=== PATIENT | female | born 1955 | race Caucasian/White ===

== ENCOUNTER 2018-10-12 19:04 | Emergency (ER) | payer OTHER ==
[2018-10-12] MEDS ORDERED: predniSONE 20 MG TAB ONE (20:04)
== END 2018-10-12 20:10 | disposition home or self-care (01) ==
LOC: MADERS 19:04
DX: J02.9 Acute pharyngitis, unspecified (principal); B34.9 Viral infection, unspecified; E78.5 Hyperlipidemia, unspecified; I10 Essential (primary) hypertension; M19.90 Unspecified osteoarthritis, unspecified site; F41.9 Anxiety disorder, unspecified; Z87.891 Personal history of nicotine dependence; Z79.891 Long term (current) use of opiate analgesic; Z79.899 Other long term (current) drug therapy
CPT/HCPCS: 87081; 87430; 87804; 99283; J7506

== ENCOUNTER 2024-02-14 00:03 | Emergency (ER) | payer MEDICARE, OTHER ==
[2024-02-14] MEDS ORDERED: Dicyclomine 20 MG/2 ML VIAL ONE (00:34)
[2024-02-14] MEDS ORDERED: Ondansetron PF 4 MG/2 ML Vial ONE (00:34)
[2024-02-14] MEDS ORDERED: Sodium Chloride 0.9% 1,000 ML ONE (00:34)
[2024-02-14 00:44] LABS: Eosinophils 2 % (0-10); Hematocrit 38.7 % (36.0-47.0); Hemoglobin 12.2 g/dL (12.0-16.0); Lymphocytes 16 % (21-51); MDiff Complete? YES; Mean Corpuscular HGB CONC 31.5 g/dL (32.0-36.0); Mean Corpuscular Hemoglobin 29.5 pg (27.0-31.0); Mean Corpuscular Volume 93.7 fl (78.0-98.0); Mean Platelet Volume 7.8 fL (7.4-10.4); Monocytes 9 % (0-10); Neutrophil 73 % (42-75); Platelet Count 353 10x3/uL (130-400); RBC Distribution Width 14.5 % (11.5-14.5); Red Blood Cell (RBC) Count 4.13 mill/uL (4.20-5.40); White Blood Cell (WBC) Count 11.8 10x3/uL (4.8-10.8)
[2024-02-14 00:56] LABS: ALT (SGPT) 15 U/L (8-55); AST (SGOT) 16 U/L (5-34); Albumin 4.2 g/dL (3.4-4.8); Alkaline Phosphatase 86 U/L (40-110); Anion Gap 15 mmol/L (10-20); BUN (Urea Nitrogen) 19 mg/dL (9.8-20.1); Bilirubin, Total 0.3 mg/dL (0.2-1.2); Calc. Creatinine Clearance 0 mL/min (70-130); Calcium 9.3 mg/dL (7.8-10.44); Carbon Dioxide 21 mmol/L (23-31); Chloride 101 mmol/L (98-107); Estimated GFR 64; Glucose 125 mg/dL (80-115); Lipase 81 U/L (8-78); Potassium 4.1 mmol/L (3.5-5.1); Protein, Total 7.2 g/dL (5.8-8.1); Sodium 133 mmol/L (136-145)
[2024-02-14 01:20] LABS: Bilirubin Negative (Negative); Blood, Urine Negative (Negative); CAUTI Indications for Culture Pelvic or flank pain; Clarity Clear (Clear); Glucose, Urine (Dipstick) Negative (Negative); Ketone, Urine Negative (Negative); Leukocyte Negative (Negative); Nitrite Negative (Negative); Protein, Urine (Dipstick) Negative (Neg-Trace); RBC/HPF None Seen HPF (0-3); Squamous Epithelial 0-3 HPF (0-3); Urobilinogen 0.2 mg/dL (Less than 2); WBC/HPF 0-3 HPF (0-3); Yeast-Budding Rare HPF (None Seen); pH, Urine 5.5 (5.0-9.0)
[2024-02-14 01:21] LABS: Urine Culture Reflex No No
[2024-02-14] MEDS ORDERED: Lidocaine Viscous Sol 2% 15 ml UD Cup ONE (01:43)
[2024-02-14] MEDS ORDERED: Mag-Al Plus 1200/1200/120 MG (30 mL) UDCUP ONE (01:43)
== END 2024-02-14 02:00 | disposition home or self-care (01) ==
LOC: MADERS 00:03
DX: R10.13 Epigastric pain (principal); Z55.6 Problems related to health literacy; F17.210 Nicotine dependence, cigarettes, uncomplicated
CPT/HCPCS: 80053; 81001; 83690; 85025; 93005; 96372; 96374; J2405; J7050

== ENCOUNTER 2024-02-22 16:58 | Emergency (ER) | payer MEDICARE, OTHER ==
[2024-02-22] MEDS ORDERED: Lactated Ringer's 1,000 ML ONE (17:34)
[2024-02-22] MEDS ORDERED: Morphine 4 MG/ML VIAL ONE ×2 (17:34→18:40)
[2024-02-22] MEDS ORDERED: Ondansetron PF 4 MG/2 ML Vial ONE (17:34)
[2024-02-22 18:05] LABS: ALT (SGPT) 12 U/L (8-55); AST (SGOT) 14 U/L (5-34); Albumin 4.3 g/dL (3.4-4.8); Alkaline Phosphatase 115 U/L (40-110); Anion Gap 23 mmol/L (10-20); BUN (Urea Nitrogen) 18 mg/dL (9.8-20.1); Bilirubin, Total 0.3 mg/dL (0.2-1.2); Calc. Creatinine Clearance 0 mL/min (70-130); Calcium 9.9 mg/dL (7.8-10.44); Carbon Dioxide 17 mmol/L (23-31); Chloride 99 mmol/L (98-107); Estimated GFR 64; Globulin 3.1 g/dL (2.4-3.5); Glucose 222 mg/dL (80-115); Lipase 122 U/L (8-78); Potassium 3.9 mmol/L (3.5-5.1); Protein, Total 7.4 g/dL (5.8-8.1); Sodium 135 mmol/L (136-145)
[2024-02-22 18:06] LABS: Troponin I Less than 0.010 ng/mL (< 0.028)
[2024-02-22 18:22] LABS: Band 4 % (5-11); Hematocrit 40.2 % (36.0-47.0); Hemoglobin 12.5 g/dL (12.0-16.0); Hypochromia SLIGHT = 6-15 cells (100X) (0-5/hpf); Lymphocytes 10 % (21-51); MDiff Complete? YES; Mean Corpuscular HGB CONC 31.1 g/dL (32.0-36.0); Mean Corpuscular Hemoglobin 29.1 pg (27.0-31.0); Mean Corpuscular Volume 93.6 fl (78.0-98.0); Mean Platelet Volume 7.6 fL (7.4-10.4); Monocytes 12 % (0-10); Neutrophil 74 % (42-75); Platelet Adequacy Comment Appears Increased; Platelet Count 475 10x3/uL (130-400); RBC Distribution Width 13.8 % (11.5-14.5); Red Blood Cell (RBC) Count 4.29 mill/uL (4.20-5.40)
[2024-02-22] MEDS ORDERED: HYDROmorphone 0.5 MG/0.5 ML SYRINGE ONE ×3 (19:27→22:58)
[2024-02-22] MEDS ORDERED: Piperacillin/Tazobactam 4.5 GM VIAL ONE (19:36)
[2024-02-22] MEDS ORDERED: Sodium Chloride 0.9% 100 ML ONE (19:36)
[2024-02-22 19:48] LABS: Base Excess-Venous -2.4 mmol/L (-2.0 to 3.0); Bicarbonate (HCO3v) 22.6 mmol/L (22.0-28.0); Calcium, Ionized 1.17 mmol/L (1.15-1.33); Chloride 99 mmol/L (98-107); Hemoglobin - Calc 13.9 g/dL (12.0-16.0); Potassium 3.3 mmol/L (3.5-5.1); Sodium 134 mmol/L (138-145); T. Carbon Dioxide 23.8 mmol/L (22.0-28.0); vO2 Saturation-calc 85.8 % (60.0-85.0)
[2024-02-22 20:21] LABS: INR-International Normal Ratio 1.1; Prothrombin Time 13.9 sec (12.0-14.7)
[2024-02-22 20:22] LABS: PTT 38.5 sec (22.9-36.1)
[2024-02-22 20:33] LABS: Lactic Acid 1.2 mmol/L (0.5-2.2)
[2024-02-22 21:23] LABS: Bilirubin Negative (Negative); Blood, Urine Negative (Negative); Clarity Clear (Clear); Glucose, Urine (Dipstick) 100 mg/dL (Negative); Ketone, Urine Negative (Negative); Leukocyte Negative (Negative); Nitrite Negative (Negative); Protein, Urine (Dipstick) Negative (Neg-Trace); Urobilinogen 0.2 mg/dL (Less than 2)
[2024-02-22 21:24] LABS: CAUTI Indications for Culture Pelvic or flank pain; RBC/HPF None Seen HPF (0-3); Squamous Epithelial 0-3 HPF (0-3); WBC/HPF None Seen HPF (0-3); Yeast-Budding Rare HPF (None Seen)
[2024-02-22 21:25] LABS: Urine Culture Reflex No No
== END 2024-02-22 23:17 | disposition short-term general hospital (02) ==
LOC: MADERS 16:58
DX: K55.1 Chronic vascular disorders of intestine (principal); K35.80 Unspecified acute appendicitis; K63.89 Other specified diseases of intestine; E78.00 Pure hypercholesterolemia, unspecified; I10 Essential (primary) hypertension; Z79.82 Long term (current) use of aspirin; Z79.899 Other long term (current) drug therapy
CPT/HCPCS: 71045; 74174; 80053; 81001; 82010; 82330; 82803; 83605; 83690; 84484; 85025; 85610; 85730; 93005; 94760; 96361; 96365; 96375; 96376; J1170; J2270; J2405; J2543; J7120

== ENCOUNTER 2024-10-02 12:24 | Emergency (ER) | payer MEDICARE, OTHER ==
[2024-10-02 13:27] LABS: Prothrombin Time 13.6 sec (12.0-14.7)
[2024-10-02 13:28] LABS: Anisocytosis SLIGHT = 6-15 cells (100X) (0-5/hpf); Band 4 % (5-11); Eosinophils 2 % (0-10); Hematocrit 30.1 % (36.0-47.0); Hemoglobin 9.7 g/dL (12.0-16.0); Hypochromia SLIGHT = 6-15 cells (100X) (0-5/hpf); Lymphocytes 11 % (21-51); MDiff Complete? YES; Mean Corpuscular HGB CONC 32.4 g/dL (32.0-36.0); Mean Corpuscular Hemoglobin 28.3 pg (27.0-31.0); Mean Corpuscular Volume 87.4 fl (78.0-98.0); Mean Platelet Volume 8.5 fL (7.4-10.4); Monocytes 12 % (0-10); Neutrophil 69 % (42-75); Platelet Adequacy Comment Appears Increased; Platelet Count 599 10x3/uL (130-400); RBC Distribution Width 14.2 % (11.5-14.5); Red Blood Cell (RBC) Count 3.44 mill/uL (4.20-5.40); White Blood Cell (WBC) Count 12.7 10x3/uL (4.8-10.8)
[2024-10-02 13:29] LABS: ALT (SGPT) 8 U/L (Less than 34); AST (SGOT) 12 U/L (11-34); Albumin 2.8 g/dL (3.1-4.5); Alkaline Phosphatase 108 U/L (40-110); Anion Gap 19 mmol/L (10-20); BUN (Urea Nitrogen) 44 mg/dL (9.8-20.1); Bilirubin, Total 0.2 mg/dL (0.3-1.2); Calc. Creatinine Clearance 0 mL/min (70-130); Calcium 9.2 mg/dL (7.8-10.44); Carbon Dioxide 22 mmol/L (23-31); Chloride 101 mmol/L (98-107); Estimated GFR 60; Globulin 4.6 g/dL (2.4-3.5); Glucose 108 mg/dL (80-115); Potassium 4.4 mmol/L (3.5-5.1); Protein, Total 7.4 g/dL (5.8-8.1); Sodium 138 mmol/L (136-145)
[2024-10-02] MEDS ORDERED: Piperacillin/Tazobactam 4.5 GM VIAL ONE (13:39)
[2024-10-02] MEDS ORDERED: Vancomycin 1 GM VIAL ONE (14:19)
== END 2024-10-02 17:28 | disposition home or self-care (01) ==
LOC: MADERS 12:24
DX: T81.31XA Disruption of external operation (surgical) wound, not elsewhere classified, initial encounter (principal); I10 Essential (primary) hypertension; F17.210 Nicotine dependence, cigarettes, uncomplicated; E78.5 Hyperlipidemia, unspecified; Z86.79 Personal history of other diseases of the circulatory system; Y82.8 Other medical devices associated with adverse incidents
CPT/HCPCS: 36415; 74177; 80053; 83605; 85025; 85610; 85730; 86140; 87040; 87070; 87205; 94760; 96365; 96367; J2543; J3370

== ENCOUNTER 2025-01-16 12:25 | Emergency (ER) | payer MEDICARE, OTHER | END 2025-01-16 13:55 | disposition home or self-care (01) | LOC: MADERS 12:25 | DX: S90.32XA Contusion of left foot, initial encounter (principal); I10 Essential (primary) hypertension; E78.00 Pure hypercholesterolemia, unspecified; F17.210 Nicotine dependence, cigarettes, uncomplicated; Z79.82 Long term (current) use of aspirin; Z79.899 Other long term (current) drug therapy; Z95.5 Presence of coronary angioplasty implant and graft; W20.8XXA Other cause of strike by thrown, projected or falling object, initial encounter | CPT/HCPCS: 99283 ==

== ENCOUNTER 2025-04-05 13:10 | Outpatient (CLI) | payer MEDICARE, OTHER ==
[2025-04-05 13:39] LABS: ALT (SGPT) 27 U/L (Less than 34); AST (SGOT) 25 U/L (11-34); Albumin 2.6 g/dL (3.1-4.5); Alkaline Phosphatase 181 U/L (40-110); Anion Gap 19 mmol/L (10-20); BUN (Urea Nitrogen) 32 mg/dL (9.8-20.1); Bilirubin, Total 0.3 mg/dL (0.3-1.2); Calc. Creatinine Clearance 0 mL/min (70-130); Calcium 8.7 mg/dL (7.8-10.44); Carbon Dioxide 24 mmol/L (23-31); Chloride 103 mmol/L (98-107); Globulin 4.0 g/dL (2.4-3.5); Glucose 99 mg/dL (80-115); Magnesium 2.1 mg/dL (1.6-2.6); Potassium 4.3 mmol/L (3.5-5.1); Sodium 142 mmol/L (136-145); Triglycerides 299 mg/dL (Less than 150)
[2025-04-05 14:12] LABS: Anisocytosis SLIGHT = 6-15 cells (100X) (0-5/hpf); Hematocrit 24.4 % (36.0-47.0); Hemoglobin 7.7 g/dL (12.0-16.0); MDiff Complete? YES; Mean Corpuscular Hemoglobin 25.9 pg (27.0-31.0); Mean Corpuscular Volume 82.2 fl (78.0-98.0); Platelet Adequacy Comment Appears Increased; Platelet Count 495 10x3/uL (130-400); Red Blood Cell (RBC) Count 2.94 mill/uL (4.20-5.40); White Blood Cell (WBC) Count 13.0 10x3/uL (4.8-10.8)
== END 2025-04-05 13:11 | disposition home or self-care (01) ==
LOC: MADLAB 13:10
PROVIDERS: ATTEND Family Medicine
DX: K55.1 Chronic vascular disorders of intestine (principal)
CPT/HCPCS: 80053; 83735; 84100; 84134; 84478; 85025; 86140

== ENCOUNTER 2025-04-13 11:51 | Outpatient (CLI) | payer MEDICARE, OTHER ==
[2025-04-13 12:09] LABS: #Basophils 0.2 thou/uL (0.0-0.2); #Eosinophils 0.1 thou/uL (0.0-0.7); #Lymphocytes 1.3 thou/uL (1.20-3.40); #Monocytes 1.2 thou/uL (0.11-0.59); #Neutrophils 8.0 thou/uL (1.40-6.50); %Basophils 2.0 % (0.0-1.0); %Eosinophils 1.3 % (0.0-10.0); %Lymphocytes 12.2 % (21.0-51.0); %Monocytes 10.7 % (0.0-10.0); %Neutrophils 73.9 % (42.0-75.0); Hematocrit 25.9 % (36.0-47.0); Hemoglobin 8.1 g/dL (12.0-16.0); Mean Corpuscular Hemoglobin 25.4 pg (27.0-31.0); Mean Corpuscular Volume 81.6 fl (78.0-98.0); Platelet Count 576 10x3/uL (130-400); Red Blood Cell (RBC) Count 3.18 mill/uL (4.20-5.40); White Blood Cell (WBC) Count 10.8 10x3/uL (4.8-10.8)
[2025-04-13 12:18] LABS: ALT (SGPT) 33 U/L (Less than 34); AST (SGOT) 26 U/L (11-34); Albumin 2.7 g/dL (3.1-4.5); Alkaline Phosphatase 149 U/L (40-110); Anion Gap 18 mmol/L (10-20); BUN (Urea Nitrogen) 35 mg/dL (9.8-20.1); Bilirubin, Total 0.3 mg/dL (0.3-1.2); Calc. Creatinine Clearance 0 mL/min (70-130); Calcium 8.8 mg/dL (7.8-10.44); Carbon Dioxide 26 mmol/L (23-31); Chloride 101 mmol/L (98-107); Globulin 4.2 g/dL (2.4-3.5); Glucose 107 mg/dL (80-115); Magnesium 2.3 mg/dL (1.6-2.6); Potassium 4.8 mmol/L (3.5-5.1); Sodium 140 mmol/L (136-145); Triglycerides 246 mg/dL (Less than 150)
== END 2025-04-13 11:52 | disposition home or self-care (01) ==
LOC: MADLAB 11:51
PROVIDERS: ATTEND Family Medicine
DX: K55.1 Chronic vascular disorders of intestine (principal)
CPT/HCPCS: 80053; 83735; 84100; 84134; 84478; 85025; 86140

== ENCOUNTER 2025-04-19 10:40 | Outpatient (CLI) | payer MEDICARE, OTHER ==
[2025-04-19 10:49] LABS: #Basophils 0.1 thou/uL (0.0-0.2); #Eosinophils 0.1 thou/uL (0.0-0.7); #Lymphocytes 2.0 thou/uL (1.20-3.40); #Monocytes 1.2 thou/uL (0.11-0.59); #Neutrophils 8.6 thou/uL (1.40-6.50); %Basophils 0.9 % (0.0-1.0); %Eosinophils 1.2 % (0.0-10.0); %Lymphocytes 16.8 % (21.0-51.0); %Monocytes 9.9 % (0.0-10.0); %Neutrophils 71.1 % (42.0-75.0); Hematocrit 27.2 % (36.0-47.0); Hemoglobin 8.4 g/dL (12.0-16.0); Mean Corpuscular Hemoglobin 25.1 pg (27.0-31.0); Mean Corpuscular Volume 81.2 fl (78.0-98.0); Platelet Count 593 10x3/uL (130-400); Red Blood Cell (RBC) Count 3.35 mill/uL (4.20-5.40); White Blood Cell (WBC) Count 12.1 10x3/uL (4.8-10.8)
[2025-04-19 11:02] LABS: ALT (SGPT) 20 U/L (Less than 34); AST (SGOT) 17 U/L (11-34); Albumin 2.8 g/dL (3.1-4.5); Alkaline Phosphatase 147 U/L (40-110); Anion Gap 19 mmol/L (10-20); BUN (Urea Nitrogen) 43 mg/dL (9.8-20.1); Bilirubin, Total 0.3 mg/dL (0.3-1.2); Calc. Creatinine Clearance 0 mL/min (70-130); Calcium 9.1 mg/dL (7.8-10.44); Carbon Dioxide 27 mmol/L (23-31); Chloride 99 mmol/L (98-107); Globulin 4.2 g/dL (2.4-3.5); Glucose 113 mg/dL (80-115); Magnesium 2.3 mg/dL (1.6-2.6); Potassium 4.6 mmol/L (3.5-5.1); Sodium 140 mmol/L (136-145); Triglycerides 267 mg/dL (Less than 150)
== END 2025-04-19 10:41 | disposition home or self-care (01) ==
LOC: MADLAB 10:40
PROVIDERS: ATTEND Family Medicine
DX: K55.1 Chronic vascular disorders of intestine (principal)
CPT/HCPCS: 80053; 83735; 84100; 84134; 84478; 85025; 86140

== ENCOUNTER 2025-04-26 11:22 | Outpatient (CLI) | payer MEDICARE, OTHER ==
[2025-04-26 11:51] LABS: ALT (SGPT) 14 U/L (Less than 34); AST (SGOT) 26 U/L (11-34); Albumin 2.3 g/dL (3.1-4.5); Alkaline Phosphatase 130 U/L (40-110); Anion Gap 20 mmol/L (10-20); BUN (Urea Nitrogen) 60 mg/dL (9.8-20.1); Bilirubin, Total 0.5 mg/dL (0.3-1.2); Calc. Creatinine Clearance 0 mL/min (70-130); Calcium 8.3 mg/dL (7.8-10.44); Carbon Dioxide 26 mmol/L (23-31); Chloride 95 mmol/L (98-107); Globulin 4.4 g/dL (2.4-3.5); Glucose 95 mg/dL (80-115); Magnesium 2.0 mg/dL (1.6-2.6); Potassium 4.2 mmol/L (3.5-5.1); Sodium 137 mmol/L (136-145); Triglycerides 606 mg/dL (Less than 150)
[2025-04-26 11:57] LABS: #Basophils 0.1 thou/uL (0.0-0.2); #Eosinophils 0.3 thou/uL (0.0-0.7); #Lymphocytes 1.7 thou/uL (1.20-3.40); #Monocytes 2.1 thou/uL (0.11-0.59); #Neutrophils 15.0 thou/uL (1.40-6.50); %Basophils 0.5 % (0.0-1.0); %Eosinophils 1.4 % (0.0-10.0); %Lymphocytes 8.8 % (21.0-51.0); %Monocytes 11.2 % (0.0-10.0); %Neutrophils 78.2 % (42.0-75.0); Anisocytosis SLIGHT = 6-15 cells (100X) (0-5/hpf); Hematocrit 23.5 % (36.0-47.0); Hemoglobin 7.4 g/dL (12.0-16.0); Mean Corpuscular Hemoglobin 25.0 pg (27.0-31.0); Mean Corpuscular Volume 79.5 fl (78.0-98.0); Platelet Count 475 10x3/uL (130-400); Polychromasia MODERATE = 3-4 cells (100X) (0-2/hpf); Red Blood Cell (RBC) Count 2.96 mill/uL (4.20-5.40); White Blood Cell (WBC) Count 19.2 10x3/uL (4.8-10.8)
== END 2025-04-26 11:23 | disposition home or self-care (01) ==
LOC: MADLAB 11:22
PROVIDERS: ATTEND Family Medicine
DX: K55.1 Chronic vascular disorders of intestine (principal)
CPT/HCPCS: 80053; 83735; 84100; 84134; 84478; 85025; 86140

== ENCOUNTER 2025-05-03 11:59 | Outpatient (CLI) | payer MEDICARE, OTHER ==
[2025-05-03 12:44] LABS: ALT (SGPT) 28 U/L (Less than 34); AST (SGOT) 37 U/L (11-34); Albumin 2.2 g/dL (3.1-4.5); Alkaline Phosphatase 160 U/L (40-110); Anion Gap 18 mmol/L (10-20); BUN (Urea Nitrogen) 41 mg/dL (9.8-20.1); Bilirubin, Total 0.5 mg/dL (0.3-1.2); Calc. Creatinine Clearance 0 mL/min (70-130); Calcium 8.3 mg/dL (7.8-10.44); Carbon Dioxide 26 mmol/L (23-31); Chloride 100 mmol/L (98-107); Globulin 4.5 g/dL (2.4-3.5); Glucose 95 mg/dL (80-115); Magnesium 2.2 mg/dL (1.6-2.6); Potassium 4.4 mmol/L (3.5-5.1); Sodium 140 mmol/L (136-145); Triglycerides 353 mg/dL (Less than 150)
[2025-05-03 12:46] LABS: #Basophils 0.1 thou/uL (0.0-0.2); #Eosinophils 0.3 thou/uL (0.0-0.7); #Lymphocytes 2.2 thou/uL (1.20-3.40); #Monocytes 1.4 thou/uL (0.11-0.59); #Neutrophils 13.4 thou/uL (1.40-6.50); %Basophils 0.4 % (0.0-1.0); %Eosinophils 1.7 % (0.0-10.0); %Lymphocytes 12.7 % (21.0-51.0); %Monocytes 8.1 % (0.0-10.0); %Neutrophils 77.0 % (42.0-75.0); Hematocrit 22.7 % (36.0-47.0); Hemoglobin 7.0 g/dL (12.0-16.0); Mean Corpuscular Hemoglobin 24.0 pg (27.0-31.0); Mean Corpuscular Volume 78.2 fl (78.0-98.0); Platelet Count 584 10x3/uL (130-400); Red Blood Cell (RBC) Count 2.90 mill/uL (4.20-5.40); White Blood Cell (WBC) Count 17.4 10x3/uL (4.8-10.8)
[2025-05-03 12:54] LABS: Anisocytosis SLIGHT = 6-15 cells (100X) (0-5/hpf)
[2025-05-03 12:56] LABS: Platelet Adequacy Comment Platelets Increased
[2025-05-03 12:57] LABS: Polychromasia SLIGHT = 2-3 cells (100X) (0-2/hpf)
== END 2025-05-03 12:00 | disposition home or self-care (01) ==
LOC: MADLAB 11:59
PROVIDERS: ATTEND Family Medicine
DX: E11.51 Type 2 diabetes mellitus with diabetic peripheral angiopathy without gangrene (principal); K55.1 Chronic vascular disorders of intestine
CPT/HCPCS: 80053; 83735; 84100; 84134; 84478; 85025; 86140

== ENCOUNTER 2025-05-10 12:06 | Outpatient (CLI) | payer MEDICARE, OTHER ==
[2025-05-10 12:27] LABS: #Basophils 0.1 thou/uL (0.0-0.2); #Eosinophils 0.4 thou/uL (0.0-0.7); #Lymphocytes 2.0 thou/uL (1.20-3.40); #Monocytes 1.2 thou/uL (0.11-0.59); #Neutrophils 12.9 thou/uL (1.40-6.50); %Basophils 0.6 % (0.0-1.0); %Eosinophils 2.5 % (0.0-10.0); %Lymphocytes 12.0 % (21.0-51.0); %Monocytes 7.3 % (0.0-10.0); %Neutrophils 77.7 % (42.0-75.0); Hematocrit 22.2 % (36.0-47.0); Hemoglobin 7.0 g/dL (12.0-16.0); Mean Corpuscular Hemoglobin 23.9 pg (27.0-31.0); Mean Corpuscular Volume 76.3 fl (78.0-98.0); Platelet Count 604 10x3/uL (130-400); Red Blood Cell (RBC) Count 2.91 mill/uL (4.20-5.40); White Blood Cell (WBC) Count 16.6 10x3/uL (4.8-10.8)
[2025-05-10 12:35] LABS: ALT (SGPT) 20 U/L (Less than 34); AST (SGOT) 22 U/L (11-34); Albumin 2.3 g/dL (3.1-4.5); Alkaline Phosphatase 176 U/L (40-110); Anion Gap 18 mmol/L (10-20); BUN (Urea Nitrogen) 35 mg/dL (9.8-20.1); Bilirubin, Total 0.9 mg/dL (0.3-1.2); Calc. Creatinine Clearance 0 mL/min (70-130); Calcium 8.6 mg/dL (7.8-10.44); Carbon Dioxide 22 mmol/L (23-31); Chloride 104 mmol/L (98-107); Globulin 4.8 g/dL (2.4-3.5); Glucose 85 mg/dL (80-115); Magnesium 2.3 mg/dL (1.6-2.6); Potassium 5.4 mmol/L (3.5-5.1); Sodium 139 mmol/L (136-145); Triglycerides 452 mg/dL (Less than 150)
[2025-05-10 12:55] LABS: Anisocytosis SLIGHT = 6-15 cells (100X) (0-5/hpf)
[2025-05-10 12:57] LABS: Platelet Adequacy Comment Appears Increased
== END 2025-05-10 12:07 | disposition home or self-care (01) ==
LOC: MADLAB 12:06
PROVIDERS: ATTEND Family Medicine
DX: E11.22 Type 2 diabetes mellitus with diabetic chronic kidney disease (principal); E11.51 Type 2 diabetes mellitus with diabetic peripheral angiopathy without gangrene; N18.9 Chronic kidney disease, unspecified; K55.1 Chronic vascular disorders of intestine; E43 Unspecified severe protein-calorie malnutrition; D50.0 Iron deficiency anemia secondary to blood loss (chronic)
CPT/HCPCS: 80053; 83735; 84100; 84134; 84478; 85025; 86140

== ENCOUNTER 2025-05-17 15:36 | Outpatient (CLI) | payer MEDICARE, OTHER ==
[2025-05-17 16:05] LABS: ALT (SGPT) 13 U/L (Less than 34); AST (SGOT) 16 U/L (11-34); Albumin 2.5 g/dL (3.1-4.5); Alkaline Phosphatase 126 U/L (40-110); Anion Gap 23 mmol/L (10-20); Anisocytosis MODERATE=16-30 cells (100X) (0-5/hpf); BUN (Urea Nitrogen) 58 mg/dL (9.8-20.1); Bilirubin, Total 0.5 mg/dL (0.3-1.2); Calc. Creatinine Clearance 0 mL/min (70-130); Calcium 8.2 mg/dL (7.8-10.44); Carbon Dioxide 27 mmol/L (23-31); Chloride 94 mmol/L (98-107); Globulin 4.4 g/dL (2.4-3.5); Glucose 158 mg/dL (80-115); Hematocrit 20.2 % (36.0-47.0); Hemoglobin 6.6 g/dL (12.0-16.0); MDiff Complete? YES; Magnesium 2.5 mg/dL (1.6-2.6); Mean Corpuscular Hemoglobin 24.7 pg (27.0-31.0); Mean Corpuscular Volume 75.8 fl (78.0-98.0); Platelet Adequacy Comment Appears Increased; Platelet Count 717 10x3/uL (130-400); Polychromasia SLIGHT = 2-3 cells (100X) (0-2/hpf); Potassium 4.6 mmol/L (3.5-5.1); Red Blood Cell (RBC) Count 2.66 mill/uL (4.20-5.40); Sodium 139 mmol/L (136-145); Triglycerides 300 mg/dL (Less than 150); White Blood Cell (WBC) Count 24.1 10x3/uL (4.8-10.8)
== END 2025-05-17 15:37 | disposition home or self-care (01) ==
LOC: MADLAB 15:36
PROVIDERS: ATTEND Family Medicine
DX: I13.0 Hypertensive heart and chronic kidney disease with heart failure and stage 1 through stage 4 chronic kidney disease, or unspecified chronic kidney disease (principal); E11.22 Type 2 diabetes mellitus with diabetic chronic kidney disease; N18.9 Chronic kidney disease, unspecified; I50.9 Heart failure, unspecified; E11.40 Type 2 diabetes mellitus with diabetic neuropathy, unspecified; E11.51 Type 2 diabetes mellitus with diabetic peripheral angiopathy without gangrene; I70.213 Atherosclerosis of native arteries of extremities with intermittent claudication, bilateral legs; K55.1 Chronic vascular disorders of intestine
CPT/HCPCS: 80053; 83735; 84100; 84134; 84478; 85025; 86140

== ENCOUNTER 2025-05-24 12:37 | Outpatient (CLI) | payer MEDICARE, OTHER ==
[2025-05-24 13:12] LABS: #Basophils 0.1 thou/uL (0.0-0.2); #Eosinophils 0.3 thou/uL (0.0-0.7); #Lymphocytes 2.0 thou/uL (1.20-3.40); #Monocytes 1.1 thou/uL (0.11-0.59); #Neutrophils 10.7 thou/uL (1.40-6.50); %Basophils 0.6 % (0.0-1.0); %Eosinophils 2.0 % (0.0-10.0); %Lymphocytes 13.8 % (21.0-51.0); %Monocytes 7.7 % (0.0-10.0); %Neutrophils 75.9 % (42.0-75.0); Hematocrit 16.8 % (36.0-47.0); Hemoglobin 5.1 g/dL (12.0-16.0); Mean Corpuscular Hemoglobin 23.2 pg (27.0-31.0); Mean Corpuscular Volume 75.7 fl (78.0-98.0); Platelet Count 490 10x3/uL (130-400); Red Blood Cell (RBC) Count 2.22 mill/uL (4.20-5.40); White Blood Cell (WBC) Count 14.1 10x3/uL (4.8-10.8)
[2025-05-24 13:14] LABS: ALT (SGPT) 19 U/L (Less than 34); AST (SGOT) 22 U/L (11-34); Albumin 2.2 g/dL (3.1-4.5); Alkaline Phosphatase 124 U/L (40-110); Anion Gap 21 mmol/L (10-20); BUN (Urea Nitrogen) 51 mg/dL (9.8-20.1); Bilirubin, Total 0.3 mg/dL (0.3-1.2); Calc. Creatinine Clearance 0 mL/min (70-130); Calcium 8.6 mg/dL (7.8-10.44); Carbon Dioxide 28 mmol/L (23-31); Chloride 95 mmol/L (98-107); Globulin 4.1 g/dL (2.4-3.5); Glucose 96 mg/dL (80-115); Magnesium 2.3 mg/dL (1.6-2.6); Potassium 3.4 mmol/L (3.5-5.1); Sodium 141 mmol/L (136-145); Triglycerides 274 mg/dL (Less than 150)
[2025-05-24 13:39] LABS: Anisocytosis SLIGHT = 6-15 cells (100X) (0-5/hpf); Microcytosis MODERATE=15-30 cells (100X) (0-5/hpf); Platelet Adequacy Comment Appears Increased
== END 2025-05-24 12:38 | disposition home or self-care (01) ==
LOC: MADLAB 12:37
PROVIDERS: ATTEND Family Medicine
DX: K55.1 Chronic vascular disorders of intestine (principal)
CPT/HCPCS: 80053; 83735; 84100; 84134; 84478; 85025; 86140

== ENCOUNTER 2025-06-07 11:42 | Outpatient (CLI) | payer MEDICARE, OTHER ==
[2025-06-07 12:21] LABS: ALT (SGPT) 9 U/L (Less than 34); AST (SGOT) 19 U/L (11-34); Albumin 2.2 g/dL (3.1-4.5); Alkaline Phosphatase 114 U/L (40-110); Anion Gap 21 mmol/L (10-20); BUN (Urea Nitrogen) 59 mg/dL (9.8-20.1); Bilirubin, Total 0.2 mg/dL (0.3-1.2); Calc. Creatinine Clearance 0 mL/min (70-130); Calcium 9.0 mg/dL (7.8-10.44); Carbon Dioxide 35 mmol/L (23-31); Chloride 90 mmol/L (98-107); Globulin 3.6 g/dL (2.4-3.5); Glucose 72 mg/dL (80-115); Magnesium 2.3 mg/dL (1.6-2.6); Potassium 3.1 mmol/L (3.5-5.1); Sodium 143 mmol/L (136-145); Triglycerides 149 mg/dL (Less than 150)
[2025-06-07 12:22] LABS: Hematocrit 27.4 % (36.0-47.0); Hemoglobin 8.5 g/dL (12.0-16.0); Mean Corpuscular Hemoglobin 24.2 pg (27.0-31.0); Mean Corpuscular Volume 77.9 fl (78.0-98.0); Platelet Count 449 10x3/uL (130-400); Red Blood Cell (RBC) Count 3.52 mill/uL (4.20-5.40); White Blood Cell (WBC) Count 24.5 10x3/uL (4.8-10.8)
[2025-06-07 12:33] LABS: MDiff Complete? YES; Manual Diff?? YES
[2025-06-07 12:34] LABS: Anisocytosis MODERATE=16-30 cells (100X) (0-5/hpf); Microcytosis SLIGHT = 6-15 cells (100X) (0-5/hpf)
[2025-06-07 12:35] LABS: Platelet Adequacy Comment Appears Increased; Polychromasia SLIGHT = 2-3 cells (100X) (0-2/hpf)
== END 2025-06-07 11:43 | disposition home or self-care (01) ==
LOC: MADLAB 11:42
PROVIDERS: ATTEND Family Medicine
DX: Z45.2 Encounter for adjustment and management of vascular access device (principal); K55.1 Chronic vascular disorders of intestine
CPT/HCPCS: 80053; 83735; 84100; 84134; 84478; 85025; 86140

== ENCOUNTER 2025-06-14 16:10 | Outpatient (CLI) | payer MEDICARE, OTHER ==
[2025-06-14 16:39] LABS: ALT (SGPT) 8 U/L (Less than 34); AST (SGOT) 17 U/L (11-34); Albumin 2.4 g/dL (3.1-4.5); Alkaline Phosphatase 97 U/L (40-110); Anion Gap 21 mmol/L (10-20); BUN (Urea Nitrogen) 35 mg/dL (9.8-20.1); Bilirubin, Total 0.2 mg/dL (0.3-1.2); Calc. Creatinine Clearance 0 mL/min (70-130); Calcium 8.2 mg/dL (7.8-10.44); Carbon Dioxide 30 mmol/L (23-31); Chloride 95 mmol/L (98-107); Globulin 4.0 g/dL (2.4-3.5); Glucose 109 mg/dL (80-115); Magnesium 2.0 mg/dL (1.6-2.6); Potassium 3.1 mmol/L (3.5-5.1); Sodium 143 mmol/L (136-145); Triglycerides 158 mg/dL (Less than 150)
[2025-06-14 18:16] LABS: #Basophils 0.2 thou/uL (0.0-0.2); #Eosinophils 0.2 thou/uL (0.0-0.7); #Lymphocytes 2.0 thou/uL (1.20-3.40); #Monocytes 1.7 thou/uL (0.11-0.59); #Neutrophils 13.5 thou/uL (1.40-6.50); %Basophils 1.1 % (0.0-1.0); %Eosinophils 1.1 % (0.0-10.0); %Lymphocytes 11.5 % (21.0-51.0); %Monocytes 9.7 % (0.0-10.0); %Neutrophils 76.6 % (42.0-75.0); Anisocytosis SLIGHT = 6-15 cells (100X) (0-5/hpf); Hematocrit 27.6 % (36.0-47.0); Hemoglobin 8.7 g/dL (12.0-16.0); MDiff Complete? YES; Mean Corpuscular Hemoglobin 24.5 pg (27.0-31.0); Mean Corpuscular Volume 78.0 fl (78.0-98.0); Platelet Adequacy Comment Appears Increased; Platelet Count 442 10x3/uL (130-400); Red Blood Cell (RBC) Count 3.54 mill/uL (4.20-5.40); Target Cells MODERATE= 6-15 cells (100X) (0-1/hpf); White Blood Cell (WBC) Count 17.6 10x3/uL (4.8-10.8)
== END 2025-06-14 16:11 | disposition home or self-care (01) ==
LOC: MADLAB 16:10
PROVIDERS: ATTEND Family Medicine
DX: Z01.89 Encounter for other specified special examinations (principal)
CPT/HCPCS: 80053; 83735; 84100; 84134; 84478; 85025

== ENCOUNTER 2025-06-21 14:32 | Outpatient (CLI) | payer MEDICARE, OTHER ==
[2025-06-21 15:07] LABS: #Basophils 0.1 thou/uL (0.0-0.2); #Eosinophils 0.1 thou/uL (0.0-0.7); #Lymphocytes 1.4 thou/uL (1.20-3.40); #Monocytes 1.3 thou/uL (0.11-0.59); #Neutrophils 15.6 thou/uL (1.40-6.50); %Basophils 0.3 % (0.0-1.0); %Eosinophils 0.5 % (0.0-10.0); %Lymphocytes 7.4 % (21.0-51.0); %Monocytes 7.0 % (0.0-10.0); %Neutrophils 84.9 % (42.0-75.0); Anisocytosis SLIGHT = 6-15 cells (100X) (0-5/hpf); Hematocrit 24.0 % (36.0-47.0); Hemoglobin 7.4 g/dL (12.0-16.0); MDiff Complete? YES; Mean Corpuscular Hemoglobin 24.4 pg (27.0-31.0); Mean Corpuscular Volume 78.7 fl (78.0-98.0); Platelet Adequacy Comment Appears Increased; Platelet Count 668 10x3/uL (130-400); Poikilocytosis SLIGHT = 6-15 cells (100X) (0-5/hpf); Red Blood Cell (RBC) Count 3.06 mill/uL (4.20-5.40); White Blood Cell (WBC) Count 18.4 10x3/uL (4.8-10.8)
[2025-06-21 15:52] LABS: ALT (SGPT) 7 U/L (Less than 34); AST (SGOT) 16 U/L (11-34); Albumin 2.4 g/dL (3.1-4.5); Alkaline Phosphatase 93 U/L (40-110); Anion Gap 19 mmol/L (10-20); BUN (Urea Nitrogen) 36 mg/dL (9.8-20.1); Bilirubin, Total 0.2 mg/dL (0.3-1.2); Calc. Creatinine Clearance 0 mL/min (70-130); Calcium 8.1 mg/dL (7.8-10.44); Carbon Dioxide 27 mmol/L (23-31); Chloride 99 mmol/L (98-107); Globulin 3.6 g/dL (2.4-3.5); Glucose 103 mg/dL (80-115); Magnesium 1.8 mg/dL (1.6-2.6); Potassium 3.9 mmol/L (3.5-5.1); Sodium 141 mmol/L (136-145); Triglycerides 192 mg/dL (Less than 150)
== END 2025-06-21 14:33 | disposition home or self-care (01) ==
LOC: MADLAB 14:32
PROVIDERS: ATTEND Family Medicine
DX: T80.211D Bloodstream infection due to central venous catheter, subsequent encounter (principal); B96.89 Other specified bacterial agents as the cause of diseases classified elsewhere
CPT/HCPCS: 80053; 83735; 84100; 84134; 84478; 85025; 86140

== ENCOUNTER 2025-06-22 07:01 | Emergency (ER) | payer MEDICARE ==
[2025-06-22] MEDS ORDERED: Aspirin Chewable 81 MG TAB ONE (07:30)
[2025-06-22 07:47] LABS: Hematocrit 23.6 % (36.0-47.0); Hemoglobin 7.8 g/dL (12.0-16.0); Mean Corpuscular Hemoglobin 25.6 pg (27.0-31.0); Mean Corpuscular Volume 77.5 fl (78.0-98.0); Platelet Count 781 10x3/uL (130-400); Red Blood Cell (RBC) Count 3.04 mill/uL (4.20-5.40); White Blood Cell (WBC) Count 18.6 10x3/uL (4.8-10.8)
[2025-06-22 07:48] LABS: MDiff Complete? YES; Manual Diff?? YES
[2025-06-22 07:49] LABS: ALT (SGPT) 8 U/L (Less than 34); AST (SGOT) 26 U/L (11-34); Albumin 2.4 g/dL (3.1-4.5); Alkaline Phosphatase 85 U/L (40-110); Anion Gap 20 mmol/L (10-20); BUN (Urea Nitrogen) 32 mg/dL (9.8-20.1); Bilirubin, Total 0.1 mg/dL (0.3-1.2); Calc. Creatinine Clearance 0 mL/min (70-130); Calcium 8.5 mg/dL (7.8-10.44); Carbon Dioxide 24 mmol/L (23-31); Chloride 102 mmol/L (98-107); Globulin 4.4 g/dL (2.4-3.5); Glucose 162 mg/dL (80-115); Magnesium 1.9 mg/dL (1.6-2.6); Potassium 3.4 mmol/L (3.5-5.1); Sodium 143 mmol/L (136-145)
[2025-06-22 07:50] LABS: Anisocytosis SLIGHT = 6-15 cells (100X) (0-5/hpf); Microcytosis SLIGHT = 6-15 cells (100X) (0-5/hpf); Platelet Adequacy Comment Appears Increased
[2025-06-22 07:54] LABS: Troponin I 0.013 ng/mL (< 0.028)
[2025-06-22] MEDS ORDERED: cefTRIAXone (ROCEPHIN) 1 GM VIAL ONE ×2 (08:17→20:29)
[2025-06-22] MEDS ORDERED: Azithromycin 500 MG VIAL ONE (08:17)
[2025-06-22] MEDS ORDERED: Iopamidol 370 76% 100 ML VIAL ONE (09:00)
[2025-06-22] MEDS ORDERED: Furosemide 20 MG (2 mL) VIAL ONE (10:02)
[2025-06-22 13:52] LABS: Troponin I 0.215 ng/mL (< 0.028)
[2025-06-22] MEDS ORDERED: Pantoprazole 40 MG DR.TAB ONE (16:02)
[2025-06-22 17:31] LABS: Troponin I 0.271 ng/mL (< 0.028)
[2025-06-22] MEDS ORDERED: ALPRAZolam 0.5 MG TAB ONE (19:44)
[2025-06-23 06:54] LABS: Troponin I 0.093 ng/mL (< 0.028)
[2025-06-23 07:00] LABS: Carbon Dioxide 23 mmol/L (23-31); Chloride 106 mmol/L (98-107); Potassium 4.0 mmol/L (3.5-5.1); Sodium 142 mmol/L (136-145)
[2025-06-23 07:01] LABS: ALT (SGPT) 16 U/L (Less than 34); AST (SGOT) 34 U/L (11-34); Albumin 2.1 g/dL (3.1-4.5); Alkaline Phosphatase 87 U/L (40-110); Anion Gap 17 mmol/L (10-20); BUN (Urea Nitrogen) 21 mg/dL (9.8-20.1); Bilirubin, Total 0.2 mg/dL (0.3-1.2); Calcium 7.3 mg/dL (7.8-10.44); Globulin 3.5 g/dL (2.4-3.5); Glucose 78 mg/dL (80-115)
[2025-06-23] MEDS ORDERED: Azithromycin 500 MG VIAL ONE (08:15)
[2025-06-23] MEDS ORDERED: Furosemide 20 MG (2 mL) VIAL ONE (08:15)
[2025-06-23] MEDS ORDERED: Enoxaparin 60 MG (0.6 mL) SYRINGE ONE (08:16)
[2025-06-23] MEDS ORDERED: Pantoprazole 40 MG DR.TAB ONE (08:39)
[2025-06-23] MEDS ORDERED: Aspirin Chewable 81 MG TAB ONE (08:39)
[2025-06-23 08:46] LABS: INR-International Normal Ratio 1.1; Prothrombin Time 14.7 sec (12.0-14.7)
[2025-06-23 08:47] LABS: PTT 33.4 sec (22.9-36.1)
[2025-06-23] MEDS ORDERED: Calcium Carbonate 500 MG ChewTAB ONE (09:31)
[2025-06-23 11:09] LABS: #Basophils 0.2 thou/uL (0.0-0.2); #Eosinophils 0.3 thou/uL (0.0-0.7); #Lymphocytes 2.4 thou/uL (1.20-3.40); #Monocytes 1.2 thou/uL (0.11-0.59); #Neutrophils 9.2 thou/uL (1.40-6.50); %Basophils 1.3 % (0.0-1.0); %Eosinophils 2.5 % (0.0-10.0); %Lymphocytes 17.8 % (21.0-51.0); %Monocytes 9.1 % (0.0-10.0); %Neutrophils 69.4 % (42.0-75.0); Anisocytosis SLIGHT = 6-15 cells (100X) (0-5/hpf); Hematocrit 24.0 % (36.0-47.0); Hemoglobin 7.6 g/dL (12.0-16.0); MDiff Complete? YES; Mean Corpuscular Hemoglobin 25.3 pg (27.0-31.0); Mean Corpuscular Volume 80.1 fl (78.0-98.0); Platelet Adequacy Comment Appears Increased; Platelet Count 578 10x3/uL (130-400); Red Blood Cell (RBC) Count 2.99 mill/uL (4.20-5.40); White Blood Cell (WBC) Count 13.2 10x3/uL (4.8-10.8)
[2025-06-23] MEDS ORDERED: oxyCODONE 5 MG TAB PO PRN (11:09)
== END 2025-06-23 16:23 | disposition short-term general hospital (02) ==
LOC: MADERS 07:01
DX: A41.9 Sepsis, unspecified organism (principal); I11.0 Hypertensive heart disease with heart failure; I50.9 Heart failure, unspecified; J18.9 Pneumonia, unspecified organism; I26.99 Other pulmonary embolism without acute cor pulmonale; E78.00 Pure hypercholesterolemia, unspecified; F17.210 Nicotine dependence, cigarettes, uncomplicated; Z79.82 Long term (current) use of aspirin; Z79.899 Other long term (current) drug therapy
CPT/HCPCS: 36416; 71045; 71275; 80053; 83605; 83735; 83880; 84100; 84484; 85025; 85379; 85610; 85730; 87040; 87149; 87428; 93005; 96365; 96366; 96368; 96372; 96375; 96376; J0456; J0696; J1642; J1650; J1940; J2270; J2272; J7050; Q9967

== ENCOUNTER 2025-06-28 14:28 | Outpatient (CLI) | payer MEDICARE ==
[2025-06-28 15:09] LABS: Anion Gap 19 mmol/L (10-20); BUN (Urea Nitrogen) 30 mg/dL (9.8-20.1); Calc. Creatinine Clearance 0 mL/min (70-130); Calcium 8.7 mg/dL (7.8-10.44); Carbon Dioxide 24 mmol/L (23-31); Chloride 104 mmol/L (98-107); Glucose 86 mg/dL (80-115); Magnesium 2.0 mg/dL (1.6-2.6); Potassium 4.8 mmol/L (3.5-5.1); Sodium 142 mmol/L (136-145); Triglycerides 204 mg/dL (Less than 150)
[2025-06-28 16:14] LABS: #Basophils 0.1 thou/uL (0.0-0.2); #Eosinophils 0.4 thou/uL (0.0-0.7); #Lymphocytes 2.7 thou/uL (1.20-3.40); #Monocytes 1.4 thou/uL (0.11-0.59); #Neutrophils 6.6 thou/uL (1.40-6.50); %Basophils 1.1 % (0.0-1.0); %Eosinophils 3.7 % (0.0-10.0); %Lymphocytes 23.5 % (21.0-51.0); %Monocytes 12.8 % (0.0-10.0); %Neutrophils 58.8 % (42.0-75.0); Anisocytosis SLIGHT = 6-15 cells (100X) (0-5/hpf); Hematocrit 29.7 % (36.0-47.0); Hemoglobin 9.3 g/dL (12.0-16.0); MDiff Complete? YES; Mean Corpuscular Hemoglobin 25.9 pg (27.0-31.0); Mean Corpuscular Volume 82.8 fl (78.0-98.0); Microcytosis SLIGHT = 6-15 cells (100X) (0-5/hpf); Platelet Adequacy Comment Appears Increased; Platelet Count 602 10x3/uL (130-400); Red Blood Cell (RBC) Count 3.58 mill/uL (4.20-5.40); White Blood Cell (WBC) Count 11.2 10x3/uL (4.8-10.8)
== END 2025-06-28 14:29 | disposition home or self-care (01) ==
LOC: MADLAB 14:28
PROVIDERS: ATTEND Family Medicine
DX: K55.1 Chronic vascular disorders of intestine (principal); B96.89 Other specified bacterial agents as the cause of diseases classified elsewhere; T80.211D Bloodstream infection due to central venous catheter, subsequent encounter
CPT/HCPCS: 80048; 83735; 84100; 84134; 84478; 85025; 86140

== ENCOUNTER 2025-07-05 10:50 | Outpatient (CLI) | payer MEDICARE ==
[2025-07-05 13:25] LABS: Hematocrit 30.0 % (36.0-47.0); Hemoglobin 9.2 g/dL (12.0-16.0); Mean Corpuscular Hemoglobin 25.7 pg (27.0-31.0); Mean Corpuscular Volume 84.3 fl (78.0-98.0); Platelet Count 561 10x3/uL (130-400); Red Blood Cell (RBC) Count 3.56 mill/uL (4.20-5.40); White Blood Cell (WBC) Count 15.0 10x3/uL (4.8-10.8)
[2025-07-05 13:30] LABS: ALT (SGPT) 22 U/L (Less than 34); AST (SGOT) 27 U/L (11-34); Albumin 2.9 g/dL (3.1-4.5); Alkaline Phosphatase 118 U/L (40-110); Anion Gap 20 mmol/L (10-20); BUN (Urea Nitrogen) 43 mg/dL (9.8-20.1); Bilirubin, Total 0.2 mg/dL (0.3-1.2); Calc. Creatinine Clearance 0 mL/min (70-130); Calcium 9.4 mg/dL (7.8-10.44); Carbon Dioxide 24 mmol/L (23-31); Chloride 102 mmol/L (98-107); Globulin 4.2 g/dL (2.4-3.5); Glucose 102 mg/dL (80-115); Magnesium 2.1 mg/dL (1.6-2.6); Potassium 5.6 mmol/L (3.5-5.1); Sodium 140 mmol/L (136-145); Triglycerides 232 mg/dL (Less than 150)
[2025-07-05 13:59] LABS: MDiff Complete? YES; Manual Diff?? YES
[2025-07-05 14:00] LABS: Anisocytosis MODERATE=16-30 cells (100X) (0-5/hpf); Platelet Adequacy Comment Appears Increased
[2025-07-05 14:01] LABS: Microcytosis SLIGHT = 6-15 cells (100X) (0-5/hpf)
== END 2025-07-05 10:51 | disposition home or self-care (01) ==
LOC: MADLAB 10:50
PROVIDERS: ATTEND Family Medicine
DX: A41.1 Sepsis due to other specified staphylococcus (principal); J18.9 Pneumonia, unspecified organism; E11.51 Type 2 diabetes mellitus with diabetic peripheral angiopathy without gangrene; K55.1 Chronic vascular disorders of intestine
CPT/HCPCS: 80053; 83735; 84100; 84134; 84478; 85025; 86140

== ENCOUNTER 2025-07-12 00:14 | Emergency (ER) | payer MEDICARE ==
[2025-07-12 01:02] LABS: #Basophils 0.2 thou/uL (0.0-0.2); #Eosinophils 0.1 thou/uL (0.0-0.7); #Lymphocytes 1.0 thou/uL (1.20-3.40); #Monocytes 1.3 thou/uL (0.11-0.59); #Neutrophils 10.3 thou/uL (1.40-6.50); %Basophils 1.4 % (0.0-1.0); %Eosinophils 1.1 % (0.0-10.0); %Lymphocytes 7.8 % (21.0-51.0); %Monocytes 10.3 % (0.0-10.0); %Neutrophils 79.5 % (42.0-75.0); Hematocrit 22.9 % (36.0-47.0); Hemoglobin 7.1 g/dL (12.0-16.0); INR-International Normal Ratio 2.0; MDiff Complete? YES; Mean Corpuscular Hemoglobin 27.4 pg (27.0-31.0); Mean Corpuscular Volume 88.9 fl (78.0-98.0); Platelet Count 384 10x3/uL (130-400); Prothrombin Time 22.8 sec (12.0-14.7); Red Blood Cell (RBC) Count 2.58 mill/uL (4.20-5.40); White Blood Cell (WBC) Count 13.0 10x3/uL (4.8-10.8)
[2025-07-12 01:03] LABS: Anisocytosis SLIGHT = 6-15 cells (100X) (0-5/hpf); PTT 45.1 sec (22.9-36.1)
[2025-07-12 01:12] LABS: ALT (SGPT) 40 U/L (Less than 34); AST (SGOT) 33 U/L (11-34); Albumin 3.0 g/dL (3.1-4.5); Alkaline Phosphatase 120 U/L (40-110); Anion Gap 19 mmol/L (10-20); BUN (Urea Nitrogen) 63 mg/dL (9.8-20.1); Bilirubin, Total 0.1 mg/dL (0.3-1.2); Calc. Creatinine Clearance 0 mL/min (70-130); Calcium 8.9 mg/dL (7.8-10.44); Carbon Dioxide 22 mmol/L (23-31); Chloride 100 mmol/L (98-107); Globulin 4.1 g/dL (2.4-3.5); Glucose 126 mg/dL (80-115); Lipase 46 U/L (8-78); Potassium 3.9 mmol/L (3.5-5.1); Sodium 137 mmol/L (136-145)
[2025-07-12 02:30] LABS: Glucose, Urine (Dipstick) Negative (Negative); Leukocyte Trace (Negative); Protein, Urine (Dipstick) Negative (Neg-Trace); Specific Gravity, Urine 1.015 (1.005-1.030)
[2025-07-12 02:33] LABS: Bacteria/HPF Rare-Few HPF (None Seen); CAUTI Indications for Culture Pelvic or flank pain; RBC/HPF 0-3 HPF (0-3); Urine Culture Reflex No No
[2025-07-12] MEDS ORDERED: ALPRAZolam 0.5 MG TAB ONE ×2 (02:48→21:23)
[2025-07-12] MEDS ORDERED: Iopamidol 370 76% 100 ML VIAL ONE ×2 (09:00)
[2025-07-12 09:23] LABS: #Lymphocytes 1.9 thou/uL (1.20-3.40); #Neutrophils 8.4 thou/uL (1.40-6.50); %Basophils 1.1 % (0.0-1.0); %Eosinophils 2.5 % (0.0-10.0); %Lymphocytes 16.1 % (21.0-51.0); %Monocytes 10.2 % (0.0-10.0); %Neutrophils 70.1 % (42.0-75.0); Hematocrit 20.1 % (36.0-47.0); Hemoglobin 6.2 g/dL (12.0-16.0); Mean Corpuscular Hemoglobin 27.7 pg (27.0-31.0); Mean Corpuscular Volume 89.7 fl (78.0-98.0); Platelet Count 370 10x3/uL (130-400); Red Blood Cell (RBC) Count 2.27 mill/uL (4.20-5.40); White Blood Cell (WBC) Count 12.0 10x3/uL (4.8-10.8)
[2025-07-12 09:24] LABS: #Basophils 0.1 thou/uL (0.0-0.2); #Eosinophils 0.3 thou/uL (0.0-0.7); #Monocytes 1.2 thou/uL (0.11-0.59)
[2025-07-12 09:40] LABS: Platelet Adequacy Comment Appears Increased
[2025-07-12 19:16] LABS: #Basophils 0.2 thou/uL (0.0-0.2); #Eosinophils 0.3 thou/uL (0.0-0.7); #Lymphocytes 2.2 thou/uL (1.20-3.40); #Monocytes 1.3 thou/uL (0.11-0.59); #Neutrophils 10.1 thou/uL (1.40-6.50); %Basophils 1.1 % (0.0-1.0); %Eosinophils 1.8 % (0.0-10.0); %Lymphocytes 15.7 % (21.0-51.0); %Monocytes 9.4 % (0.0-10.0); %Neutrophils 72.0 % (42.0-75.0); Anisocytosis SLIGHT = 6-15 cells (100X) (0-5/hpf); Hematocrit 21.3 % (36.0-47.0); Hemoglobin 6.5 g/dL (12.0-16.0); MDiff Complete? YES; Mean Corpuscular Hemoglobin 27.6 pg (27.0-31.0); Mean Corpuscular Volume 91.2 fl (78.0-98.0); Platelet Adequacy Comment Appears Adequate; Platelet Count 386 10x3/uL (130-400); Red Blood Cell (RBC) Count 2.34 mill/uL (4.20-5.40); White Blood Cell (WBC) Count 14.0 10x3/uL (4.8-10.8)
[2025-07-13 07:03] LABS: #Basophils 0.2 thou/uL (0.0-0.2); #Eosinophils 0.2 thou/uL (0.0-0.7); #Lymphocytes 1.8 thou/uL (1.20-3.40); #Monocytes 1.1 thou/uL (0.11-0.59); #Neutrophils 8.3 thou/uL (1.40-6.50); %Basophils 1.4 % (0.0-1.0); %Eosinophils 2.1 % (0.0-10.0); %Lymphocytes 15.4 % (21.0-51.0); %Monocytes 9.6 % (0.0-10.0); %Neutrophils 71.5 % (42.0-75.0); Hematocrit 17.2 % (36.0-47.0); Hemoglobin 5.4 g/dL (12.0-16.0); Mean Corpuscular Hemoglobin 28.3 pg (27.0-31.0); Mean Corpuscular Volume 91.1 fl (78.0-98.0); Platelet Count 345 10x3/uL (130-400); Red Blood Cell (RBC) Count 1.95 mill/uL (4.20-5.40); White Blood Cell (WBC) Count 11.6 10x3/uL (4.8-10.8)
[2025-07-13] MEDS ORDERED: ALPRAZolam 0.5 MG TAB ONE (07:21)
[2025-07-13] MEDS ORDERED: HUM PROTHROMBIN CPLX(PCC) 1,000 UNITS VIAL ONE (09:11)
[2025-07-13 09:26] LABS: Anion Gap 15 mmol/L (10-20); BUN (Urea Nitrogen) 50 mg/dL (9.8-20.1); Calc. Creatinine Clearance 0 mL/min (70-130); Calcium 8.3 mg/dL (7.8-10.44); Carbon Dioxide 21 mmol/L (23-31); Chloride 107 mmol/L (98-107); Glucose 117 mg/dL (80-115); Potassium 4.5 mmol/L (3.5-5.1); Sodium 138 mmol/L (136-145)
== END 2025-07-13 11:20 | disposition short-term general hospital (02) ==
LOC: MADERS 00:14
DX: K56.7 Ileus, unspecified (principal); D64.9 Anemia, unspecified; I25.10 Atherosclerotic heart disease of native coronary artery without angina pectoris; I10 Essential (primary) hypertension; E78.00 Pure hypercholesterolemia, unspecified; F17.210 Nicotine dependence, cigarettes, uncomplicated; Z79.82 Long term (current) use of aspirin; Z95.1 Presence of aortocoronary bypass graft; Z79.899 Other long term (current) drug therapy; Z79.01 Long term (current) use of anticoagulants
CPT/HCPCS: 36415; 36430; 74174; 74177; 80048; 80053; 81001; 83605; 83690; 83880; 85025; 85610; 85730; 86850; 86900; 86901; 87040; 87077; 87149; 87186; 93005; 96365; 96366; 96375; 96376; J2270; J2272; J2543; J7030; J7168; P9016; Q9967

== ENCOUNTER 2025-07-26 16:17 | Outpatient (CLI) | payer MEDICARE ==
[2025-07-26 16:53] LABS: ALT (SGPT) 19 U/L (Less than 34); AST (SGOT) 23 U/L (11-34); Albumin 2.9 g/dL (3.1-4.5); Alkaline Phosphatase 121 U/L (40-110); Anion Gap 19 mmol/L (10-20); BUN (Urea Nitrogen) 42 mg/dL (9.8-20.1); Bilirubin, Total 0.1 mg/dL (0.3-1.2); Calc. Creatinine Clearance 0 mL/min (70-130); Calcium 8.9 mg/dL (7.8-10.44); Carbon Dioxide 25 mmol/L (23-31); Chloride 100 mmol/L (98-107); Globulin 3.5 g/dL (2.4-3.5); Glucose 104 mg/dL (80-115); Magnesium 2.2 mg/dL (1.6-2.6); Potassium 4.9 mmol/L (3.5-5.1); Sodium 139 mmol/L (136-145); Triglycerides 185 mg/dL (Less than 150)
[2025-07-26 17:03] LABS: Anisocytosis SLIGHT = 6-15 cells (100X) (0-5/hpf); Hematocrit 32.5 % (36.0-47.0); Hemoglobin 10.2 g/dL (12.0-16.0); MDiff Complete? YES; Mean Corpuscular Hemoglobin 29.7 pg (27.0-31.0); Mean Corpuscular Volume 94.9 fl (78.0-98.0); Platelet Adequacy Comment Appears Adequate; Platelet Count 306 10x3/uL (130-400); Red Blood Cell (RBC) Count 3.42 mill/uL (4.20-5.40); White Blood Cell (WBC) Count 8.9 10x3/uL (4.8-10.8)
== END 2025-07-26 16:18 | disposition home or self-care (01) ==
LOC: MADLAB 16:17
PROVIDERS: ATTEND Family Medicine
DX: K55.1 Chronic vascular disorders of intestine (principal)
CPT/HCPCS: 80053; 83735; 84100; 84134; 84478; 85025; 86140

== ENCOUNTER 2025-08-02 14:17 | Outpatient (CLI) | payer MEDICARE ==
[2025-08-02 14:31] LABS: #Basophils 0.1 thou/uL (0.0-0.2); #Eosinophils 0.3 thou/uL (0.0-0.7); #Lymphocytes 1.8 thou/uL (1.20-3.40); #Monocytes 0.8 thou/uL (0.11-0.59); #Neutrophils 7.7 thou/uL (1.40-6.50); %Basophils 0.7 % (0.0-1.0); %Eosinophils 2.6 % (0.0-10.0); %Lymphocytes 17.2 % (21.0-51.0); %Monocytes 7.3 % (0.0-10.0); %Neutrophils 72.1 % (42.0-75.0); Hematocrit 34.6 % (36.0-47.0); Hemoglobin 10.9 g/dL (12.0-16.0); Mean Corpuscular Hemoglobin 29.5 pg (27.0-31.0); Mean Corpuscular Volume 93.8 fl (78.0-98.0); Platelet Count 425 10x3/uL (130-400); Red Blood Cell (RBC) Count 3.69 mill/uL (4.20-5.40); White Blood Cell (WBC) Count 10.7 10x3/uL (4.8-10.8)
[2025-08-02 14:47] LABS: ALT (SGPT) 27 U/L (Less than 34); AST (SGOT) 20 U/L (11-34); Albumin 2.9 g/dL (3.1-4.5); Alkaline Phosphatase 128 U/L (40-110); Anion Gap 18 mmol/L (10-20); BUN (Urea Nitrogen) 51 mg/dL (9.8-20.1); Bilirubin, Total 0.1 mg/dL (0.3-1.2); Calc. Creatinine Clearance 0 mL/min (70-130); Calcium 9.0 mg/dL (7.8-10.44); Carbon Dioxide 28 mmol/L (23-31); Chloride 98 mmol/L (98-107); Globulin 3.6 g/dL (2.4-3.5); Glucose 100 mg/dL (80-115); Magnesium 2.3 mg/dL (1.6-2.6); Potassium 4.7 mmol/L (3.5-5.1); Sodium 139 mmol/L (136-145); Triglycerides 160 mg/dL (Less than 150)
== END 2025-08-02 14:18 | disposition home or self-care (01) ==
LOC: MADLAB 14:17
PROVIDERS: ATTEND Family Medicine
DX: K55.1 Chronic vascular disorders of intestine (principal)
CPT/HCPCS: 80053; 83735; 84100; 84134; 84478; 85025; 86140

== ENCOUNTER 2025-08-09 14:50 | Outpatient (CLI) | payer MEDICARE ==
[2025-08-09 14:59] LABS: #Basophils 0.1 thou/uL (0.0-0.2); #Eosinophils 0.1 thou/uL (0.0-0.7); #Lymphocytes 1.4 thou/uL (1.20-3.40); #Monocytes 1.1 thou/uL (0.11-0.59); #Neutrophils 9.1 thou/uL (1.40-6.50); %Basophils 0.7 % (0.0-1.0); %Eosinophils 0.8 % (0.0-10.0); %Lymphocytes 11.6 % (21.0-51.0); %Monocytes 9.4 % (0.0-10.0); %Neutrophils 77.6 % (42.0-75.0); Hematocrit 33.0 % (36.0-47.0); Hemoglobin 10.4 g/dL (12.0-16.0); Mean Corpuscular Hemoglobin 29.4 pg (27.0-31.0); Mean Corpuscular Volume 93.2 fl (78.0-98.0); Platelet Count 341 10x3/uL (130-400); Red Blood Cell (RBC) Count 3.54 mill/uL (4.20-5.40); White Blood Cell (WBC) Count 11.7 10x3/uL (4.8-10.8)
[2025-08-09 15:34] LABS: ALT (SGPT) 41 U/L (Less than 34); AST (SGOT) 34 U/L (11-34); Albumin 2.7 g/dL (3.1-4.5); Alkaline Phosphatase 132 U/L (40-110); Anion Gap 17 mmol/L (10-20); BUN (Urea Nitrogen) 31 mg/dL (9.8-20.1); Bilirubin, Total 0.2 mg/dL (0.3-1.2); Calc. Creatinine Clearance 0 mL/min (70-130); Calcium 8.8 mg/dL (7.8-10.44); Carbon Dioxide 26 mmol/L (23-31); Chloride 101 mmol/L (98-107); Globulin 3.8 g/dL (2.4-3.5); Glucose 108 mg/dL (80-115); Magnesium 1.9 mg/dL (1.6-2.6); Potassium 3.4 mmol/L (3.5-5.1); Sodium 141 mmol/L (136-145); Triglycerides 163 mg/dL (Less than 150)
== END 2025-08-09 14:51 | disposition home or self-care (01) ==
LOC: MADLAB 14:50
PROVIDERS: ATTEND Family Medicine
DX: K55.1 Chronic vascular disorders of intestine (principal)
CPT/HCPCS: 80053; 83735; 84100; 84134; 84478; 85025; 86140

== ENCOUNTER 2025-08-17 15:53 | Outpatient (CLI) | payer MEDICARE ==
[2025-08-17 16:44] LABS: ALT (SGPT) 48 U/L (Less than 34); AST (SGOT) 37 U/L (11-34); Albumin 2.6 g/dL (3.1-4.5); Alkaline Phosphatase 217 U/L (40-110); Anion Gap 17 mmol/L (10-20); BUN (Urea Nitrogen) 24 mg/dL (9.8-20.1); Bilirubin, Total 0.2 mg/dL (0.3-1.2); Calc. Creatinine Clearance 0 mL/min (70-130); Calcium 8.5 mg/dL (7.8-10.44); Carbon Dioxide 28 mmol/L (23-31); Chloride 101 mmol/L (98-107); Globulin 3.5 g/dL (2.4-3.5); Glucose 93 mg/dL (80-115); Magnesium 1.8 mg/dL (1.6-2.6); Potassium 3.2 mmol/L (3.5-5.1); Sodium 143 mmol/L (136-145); Triglycerides 207 mg/dL (Less than 150)
[2025-08-17 16:59] LABS: Hematocrit 32.0 % (36.0-47.0); Hemoglobin 10.3 g/dL (12.0-16.0); Mean Corpuscular Hemoglobin 30.0 pg (27.0-31.0); Mean Corpuscular Volume 93.4 fl (78.0-98.0); Platelet Count 317 10x3/uL (130-400); Red Blood Cell (RBC) Count 3.42 mill/uL (4.20-5.40); White Blood Cell (WBC) Count 10.4 10x3/uL (4.8-10.8)
[2025-08-17 17:00] LABS: #Basophils 0.1 thou/uL (0.0-0.2); #Eosinophils 0.2 thou/uL (0.0-0.7); #Lymphocytes 1.2 thou/uL (1.20-3.40); #Monocytes 1.1 thou/uL (0.11-0.59); #Neutrophils 7.9 thou/uL (1.40-6.50); %Basophils 0.7 % (0.0-1.0); %Eosinophils 1.7 % (0.0-10.0); %Lymphocytes 11.4 % (21.0-51.0); %Monocytes 10.5 % (0.0-10.0); %Neutrophils 75.7 % (42.0-75.0)
== END 2025-08-17 15:54 | disposition home or self-care (01) ==
LOC: MADLAB 15:53
PROVIDERS: ATTEND Family Medicine
DX: K55.1 Chronic vascular disorders of intestine (principal)
CPT/HCPCS: 80053; 83735; 84100; 84134; 84478; 85025; 86140

== ENCOUNTER 2025-08-24 14:47 | Outpatient (CLI) | payer MEDICARE ==
[2025-08-24 14:56] LABS: #Basophils 0.1 thou/uL (0.0-0.2); #Eosinophils 0.1 thou/uL (0.0-0.7); #Lymphocytes 1.4 thou/uL (1.20-3.40); #Monocytes 1.3 thou/uL (0.11-0.59); #Neutrophils 9.9 thou/uL (1.40-6.50); %Basophils 0.9 % (0.0-1.0); %Eosinophils 1.0 % (0.0-10.0); %Lymphocytes 10.6 % (21.0-51.0); %Monocytes 10.1 % (0.0-10.0); %Neutrophils 77.4 % (42.0-75.0); Hematocrit 28.8 % (36.0-47.0); Hemoglobin 9.2 g/dL (12.0-16.0); Mean Corpuscular Hemoglobin 30.3 pg (27.0-31.0); Mean Corpuscular Volume 94.2 fl (78.0-98.0); Platelet Count 343 10x3/uL (130-400); Red Blood Cell (RBC) Count 3.06 mill/uL (4.20-5.40); White Blood Cell (WBC) Count 12.7 10x3/uL (4.8-10.8)
[2025-08-24 15:26] LABS: ALT (SGPT) 21 U/L (Less than 34); AST (SGOT) 24 U/L (11-34); Albumin 2.5 g/dL (3.1-4.5); Alkaline Phosphatase 150 U/L (40-110); Anion Gap 15 mmol/L (10-20); BUN (Urea Nitrogen) 25 mg/dL (9.8-20.1); Bilirubin, Total 0.3 mg/dL (0.3-1.2); Calc. Creatinine Clearance 0 mL/min (70-130); Calcium 8.4 mg/dL (7.8-10.44); Carbon Dioxide 30 mmol/L (23-31); Chloride 100 mmol/L (98-107); Globulin 4.0 g/dL (2.4-3.5); Glucose 107 mg/dL (80-115); Magnesium 1.9 mg/dL (1.6-2.6); Potassium 3.2 mmol/L (3.5-5.1); Sodium 142 mmol/L (136-145); Triglycerides 175 mg/dL (Less than 150)
== END 2025-08-24 14:48 | disposition home or self-care (01) ==
LOC: MADLAB 14:47
PROVIDERS: ATTEND Family Medicine
DX: K55.1 Chronic vascular disorders of intestine (principal)
CPT/HCPCS: 80053; 83735; 84100; 84134; 84478; 85025; 86140

== ENCOUNTER 2025-08-27 10:39 | Emergency (ER) | payer MEDICARE ==
[~2025-08-27 10:39] MED LIST: Iopamidol 370 76% 100 ML VIAL ONE
[2025-08-27 12:07] LABS: Hematocrit 28.0 % (36.0-47.0); Hemoglobin 9.0 g/dL (12.0-16.0); Mean Corpuscular Hemoglobin 29.7 pg (27.0-31.0); Mean Corpuscular Volume 92.7 fl (78.0-98.0); Platelet Count 395 10x3/uL (130-400); Red Blood Cell (RBC) Count 3.02 mill/uL (4.20-5.40); White Blood Cell (WBC) Count 15.0 10x3/uL (4.8-10.8)
[2025-08-27 12:13] LABS: MDiff Complete? YES
[2025-08-27 12:14] LABS: Platelet Adequacy Comment Appears Adequate
[2025-08-27 12:18] LABS: ALT (SGPT) 20 U/L (Less than 34); AST (SGOT) 34 U/L (11-34); Albumin 2.6 g/dL (3.1-4.5); Alkaline Phosphatase 146 U/L (40-110); Anion Gap 17 mmol/L (10-20); BUN (Urea Nitrogen) 23 mg/dL (9.8-20.1); Bilirubin, Total 0.4 mg/dL (0.3-1.2); Calc. Creatinine Clearance 0 mL/min (70-130); Calcium 8.6 mg/dL (7.8-10.44); Carbon Dioxide 23 mmol/L (23-31); Chloride 105 mmol/L (98-107); Globulin 4.5 g/dL (2.4-3.5); Glucose 69 mg/dL (80-115); Magnesium 2.0 mg/dL (1.6-2.6); Potassium 3.7 mmol/L (3.5-5.1); Sodium 141 mmol/L (136-145)
[2025-08-27 12:24] LABS: Troponin I 0.013 ng/mL (< 0.028)
[2025-08-27] MEDS ORDERED: Furosemide 20 MG (2 mL) VIAL ONE (13:03)
[2025-08-27] MEDS ORDERED: Azithromycin 500 MG VIAL ONE (13:03)
[2025-08-27 19:38] LABS: Troponin I 0.019 ng/mL (< 0.028)
[2025-08-28] MEDS ORDERED: Furosemide 20 MG (2 mL) VIAL ONE (01:16)
[2025-08-28 02:08] LABS: Troponin I 0.011 ng/mL (< 0.028)
[2025-08-28] MEDS ORDERED: oxyCODONE 5 MG TAB PO SCH (04:00)
[2025-08-28] MEDS ORDERED: oxyCODONE 5 MG TAB ONE (04:19)
== END 2025-08-28 09:10 | disposition short-term general hospital (02) ==
LOC: MADERS 10:39
DX: I11.0 Hypertensive heart disease with heart failure (principal); I50.9 Heart failure, unspecified; J98.01 Acute bronchospasm; D64.9 Anemia, unspecified; R78.81 Bacteremia; J44.9 Chronic obstructive pulmonary disease, unspecified; J18.9 Pneumonia, unspecified organism; J81.1 Chronic pulmonary edema; F17.210 Nicotine dependence, cigarettes, uncomplicated
CPT/HCPCS: 36415; 71045; 71275; 80053; 83605; 83735; 83880; 84484; 85025; 85379; 87040; 87077; 87149; 87186; 93005; 96365; 96367; 96375; 96376; J0456; J0692; J1940; J2919; J3360; J7050; Q9967